=== PATIENT | female | born 1970 | race Caucasian/White ===

== ENCOUNTER 2019-07-29 18:32 | Emergency (ER) | payer OTHER ==
[~2019-07-29] VITALS: Ht 165.1 cm; Wt 86.2 kg
[2019-07-29] MEDS ORDERED: VENTOLIN HFA18 GM INH (18:47)
[2019-07-29] MEDS ORDERED: NORVASC10 MG PO (18:47)
[2019-07-29] MEDS ORDERED: AMITRIPTYLINE H75 MG PO (18:47)
[2019-07-29] MEDS ORDERED: ELIQUIS5 M1 PO (18:48)
[2019-07-29] MEDS ORDERED: BACLOFEN10 MG PO (18:48)
[2019-07-29] MEDS ORDERED: WELLBUTRIN SR100 MG PO (18:48)
[2019-07-29] MEDS ORDERED: FLONASE ALLERG9.9 ML NAS (18:49)
[2019-07-29] MEDS ORDERED: NEURONTIN600 MG PO (18:49)
[2019-07-29] MEDS ORDERED: BUSPIRONE HCL15 MG PO (18:49)
[2019-07-29] MEDS ORDERED: DICYCLOMINE HCL20 MG PO (18:49)
[2019-07-29] MEDS ORDERED: REMERON30 MG PO (18:50)
[2019-07-29] MEDS ORDERED: MINIPRESS1 MG PO (18:50)
[2019-07-29] MEDS ORDERED: KEPPRA XR500 MG PO (18:50)
[2019-07-29] MEDS ORDERED: EFFEXOR XR75 MG PO (18:51)
[2019-07-29] MEDS ORDERED: EFFEXOR XR150 MG PO (18:51)
[2019-07-29] MEDS ORDERED: CYCLOBENZAPRINE10 MG PO (19:58)
[2019-07-29] MEDS ORDERED: DICLOFENAC SODI75 MG PO (19:58)
== END 2019-07-29 20:10 | disposition home or self-care (01) ==
LOC: ED 18:32
DX: S46.912A Strain of unspecified muscle, fascia and tendon at shoulder and upper arm level, left arm, initial encounter (principal); J44.9 Chronic obstructive pulmonary disease, unspecified; Z87.891 Personal history of nicotine dependence; Z88.2 Allergy status to sulfonamides; Z79.899 Other long term (current) drug therapy; X58.XXXA Exposure to other specified factors, initial encounter
CPT/HCPCS: 73030; 99283-25